=== PATIENT | male | born 1965 | race Caucasian/White ===

== ENCOUNTER 2021-12-29 10:23 | Inpatient (IN) | payer OTHER ==
[~2021-12-29] VITALS: Ht 175.3 cm; Wt 88.2 kg
[~2021-12-29 10:23] MED LIST: Bactrim Ds Tab1 EACH PO; CEPH500 PO; Cleocin HCl300 MG PO; HYDACE5325 PO; Percocet 5-3251 EACH PO
[2021-12-29 10:40] LABS: Base Excess Venous 2.2 mmol/L; Bicarbonate Venous 24.6 mmol/L (24.0-30.0); PCO2 Venous 60.4 mmHg (38-42); pH Blood Venous 7.29 (7.34-7.37)
[2021-12-29 10:47] LABS: BASOPHILS ABSOLUTE AUTO 0.13 K/mm3 (0.00-0.23); BASOPHILS PERCENT AUTO 1 % (0-2); EOSINOPHILS ABSOLUTE AUTO 0.68 K/mm3 (0.00-0.68); EOSINOPHILS PERCENT AUTO 5 % (0-6); Hematocrit 48.9 % (37.0-53.0); Hemoglobin 16.7 g/dL (13.5-17.5); IMMATURE GRAN ABSOLUTE AUTO 0.04 K/mm3 (0.00-0.10); IMMATURE GRAN PERCENT AUTO 0 % (0-1); LYMPHOCYTES ABSOLUTE AUTO 2.76 K/mm3 (0.84-5.20); LYMPHOCYTES PERCENT AUTO 19 % (21-46); MONOCYTES PERCENT AUTO 7 % (4-13); Mean Corpuscular HGB 32.4 pg (26.0-34.0); Mean Corpuscular HGB Conc 34.2 g/dL (31.5-36.5); Mean Corpuscular Volume 95 fL (80-100); Mean Platelet Volume 10.3 fL (9.1-12.4); NEUTROPHILS ABSOLUTE AUTO 9.99 K/mm3 (1.96-9.15); NEUTROPHILS PERCENT AUTO 68 % (41-73); Platelet Count 320 K/mm3 (150-400); RDW Coefficient Variation 12.1 % (11.7-14.2); RDW Standard Deviation 42.5 fL (35.1-46.3); Red Blood Cell Count 5.16 M/mm3 (4.30-5.90)
[2021-12-29 10:57] LABS: Bun/Creatinine Ratio 24.8 (12.0-20.0); Calcium, Blood 8.8 mg/dL (8.5-10.1); Creatinine, Blood 0.73 mg/dL (0.60-1.20); Potassium, Blood 4.9 mmol/L (3.5-5.5)
[2021-12-29 12:01] LABS: Influenza A, PCR NEGATIVE (NEGATIVE); Influenza B, PCR NEGATIVE (NEGATIVE); Resp Syncytial Virus, PCR NEGATIVE (NEGATIVE); SARS-Cov-2 (COVID-19) PCR, MMC NEGATIVE (NEGATIVE)
[2021-12-29 12:22] LABS: Bicarbonate Venous 24.6 mmol/L (24.0-30.0); PCO2 Venous 68.5 mmHg (38-42)
[2021-12-29 12:23] LABS: pH Blood Venous 7.25 (7.34-7.37)
--- NOTE | 2021-12-29 14:02 | NUR ---
ASSUMPTION OF CARE PT ARRIVED TO ICU ROOM 8 FROM ER VIA GURNEY, TRANSFERRED VIA SLIDER SHEET. PT ALERT AND ORIENTED TO PERSON AND , CONFUSED REGARDING LOCATION. PT WAS ADMINSTERED VERSED IN THE ER PRIOR TO ARRIVAL, DROWSY AND CONFUSED DUE TO VERSED. BIPAP ON EVEN THOUGH PT NOT TOLERATING WELL. BIPAP SETTINGS-13/09 @ 40%. CONTINUOUSLY PULLING AT BIPAP AND REQUESTING "JELLO". THIS NURSE EDUCATED PT OF THE NEED FOR BIPAP, PT AGITATED. PRECEDEX GTT INITIATED @ 0.2MCG/KG/HR TO ASSIST WITH COMPLIANCE, TITRATING AT THIS TIME. UNABLE TO OBTAIN DETAILED PT HISTORY AT THIS TIME.
[2021-12-29 14:43] LABS: PCO2 Venous 62.6 mmHg (38-42); pH Blood Venous 7.29 (7.34-7.37)
[2021-12-29 14:44] LABS: Base Excess Venous 3.1 mmol/L; Bicarbonate Venous 25.2 mmol/L (24.0-30.0)
--- NOTE | 2021-12-29 18:10 | NUR ---
SHIFT SUMMARY PT ALERT AND ORIENTED TO PERSON, PLACE, AND YEAR. PT REMAINS ON SUPPLEMENTAL OXYGEN, NOT TOLERATING BIPAP WELL. CURRENTLY GIVING PT A BREAK FROM BIPAP, ON 4LPM O2 VIA NC c SATS >90%. LS DIMINISHED/ WHEEZING T/O. PT c OCCASIONAL COUGH, NON-PRODUCTIVE. PRECEDEX REMAINS ON @ 0.4MCG/KG/HR DUE TO PTS AGITATED STATE/ NON-COMPLIANCE WITH CARE. VSS. WILL MONITOR CLOSELY.
--- NOTE | 2021-12-29 20:00 | NUR ---
ASSUMED CARE OF PT AT 1915. REPORT RECEIVED AT BEDSIDE. PT PRESENTS IN BED. ALERT AND WILL FOLLOW CONVERSATION. IS ON LOW DOSE OF PRECEDEX AT THIS TIME. IS ON OXYGEN AT 5 L/M PER NASAL CANNULA. IS ABLE TO MAINTAIN SATURATIONS > 90 PERCENT. WILL REVIEW CHART AND PLAN OF CARE FOR THIS PT.
--- NOTE | 2021-12-30 01:47 | NUR ---
PT DID REQUIRE HAVING PRECEDEX INCREASED TO 0.7 MCG'S SECONDARY TO PT BECOMING VERY AGITATED AND PULLING OFF ALL HIS MONITORING EQUIPTMENT. PT CURRENTLY COMPLIANT WITH CARE.
--- NOTE | 2021-12-30 01:48 | NUR ---
HAVE TRIALED PT ON 4 L/M WHEREAS HE HAS BEEN ABLE TO MAINTAIN > 90 PERCENT SATURATIONS. ALSO HAVE TRIALED PT WITH SOLID FOOD. HE WAS ABLE TO EAT SOME CHEESE WITHOUT INCREASED DYSPNEA.
[2021-12-30 03:18] LABS: BASOPHILS ABSOLUTE AUTO 0.01 K/mm3 (0.00-0.23); BASOPHILS PERCENT AUTO 0 % (0-2); EOSINOPHILS PERCENT AUTO 0 % (0-6); Hematocrit 44.2 % (37.0-53.0); Hemoglobin 14.6 g/dL (13.5-17.5); IMMATURE GRAN ABSOLUTE AUTO 0.02 K/mm3 (0.00-0.10); IMMATURE GRAN PERCENT AUTO 0 % (0-1); LYMPHOCYTES ABSOLUTE AUTO 1.01 K/mm3 (0.84-5.20); LYMPHOCYTES PERCENT AUTO 12 % (21-46); MONOCYTES ABSOLUTE AUTO 0.21 K/mm3 (0.16-1.47); MONOCYTES PERCENT AUTO 3 % (4-13); Mean Corpuscular HGB 31.7 pg (26.0-34.0); Mean Corpuscular Volume 96 fL (80-100); NEUTROPHILS ABSOLUTE AUTO 7.02 K/mm3 (1.96-9.15); NEUTROPHILS PERCENT AUTO 85 % (41-73); Platelet Count 256 K/mm3 (150-400); RDW Coefficient Variation 12.2 % (11.7-14.2); RDW Standard Deviation 43.4 fL (35.1-46.3); Red Blood Cell Count 4.61 M/mm3 (4.30-5.90); White Blood Cell Count 8.27 K/mm3 (4.00-11.30)
[2021-12-30 03:36] LABS: Albumin, Blood 3.3 g/dL (3.4-5.0); Bilirubin, Total 0.4 mg/dL (0.1-1.0); Bun/Creatinine Ratio 33.3 (12.0-20.0); Calcium, Blood 8.9 mg/dL (8.5-10.1); Creatinine, Blood 0.75 mg/dL (0.60-1.20); Globulin, Blood 3.4 g/dL (2.2-4.0); Magnesium, Blood 2.7 mg/dL (1.6-2.4); Potassium, Blood 4.8 mmol/L (3.5-5.5); Total Protein, Blood 6.7 g/dL (6.4-8.2)
--- NOTE | 2021-12-30 05:48 | NUR ---
PT HAS REMAINED ON NASAL CANNULA THROUGHOUT THE NIGHT. OCCASSIONALLY WILL HAVE SHORT PERIOD OF DESATURATION WHILE IN A SLEEP-APNEIC TYPE BREATHING PATTERN. RECOVERS >90. OF NOTE: PT HAS NOT VOIDED THIS SHIFT. WILL HAVE PT ATTEMPT VOID OR BLADDER SCAN IF NEEDED TO CHECK FOR RETENTION. WILL CONTINUE TO MONITOR PT, AND WILL REPORT OFF TO ONCOMING RN.
--- NOTE | 2021-12-30 08:53 | NUR ---
SHIFT ASSESSMENT ASSUMED CARE OF PT @ 0700, BEDSIDE REPORT RECEIVED FROM PETTY LUTHER. PT INITIALLY DROWSY, ON LOW DOSE PRECEDEX. PRECEDEX TITRATED OFF. PT NOW FULLY ALERT AND ORIENTED, ASKING FOR FOOD. PT GIVEN CLEAR LIQUID FOOD TRAY, ABLE TO SELF FEED. SUPPLEMENTAL O2 VIA NC @ 4LPM, O2 TITRATED OFF OVER THE HOUR. PT NOW ON RA c O2 SATS >90% WITH NO SIGNS OF RESP DISTRESS. NSR ON THE SOLAR PANEL TECHNICIAN, BP WNL. PT HAS NOT URINATED YET BUT STATED HE IS BEGINNING TO HAVE THE URGE. NO OTHER COMPLAINTS OR CONCERNS FROM PT.
--- NOTE | 2021-12-30 12:32 | NUR ---
UPDATE PT TOLERATING ROOM AIR WELL. STILL C/O MILD SORENESS IN LUNGS FROM COUGHING BUT PT REQUESTING TO GO HOME. PT TAKEN FOR A WALK AROUND THE UNIT ON ROOM AIR, TOLERATING WELL, SATS REMAIN GREATER THAN 90%. BP STABLE. PT NOT RECEIVING ANY FLUIDS VIA IV. TOLERATING PO FOOD AND DRINK WELL. PTS PARENTS AT BEDSIDE, CONFIRMED PT HAS INHALERS WITH HIM IF NEEDED. PT TO BE DISCHARGED HOME.
[2021-12-30] MEDS ORDERED: PRED20 PO ×6 (13:24→13:26)
[2021-12-30] MEDS ORDERED: Prednisone10 MG PO ×2 (13:26)
[2021-12-30] MEDS ORDERED: PRED5 PO ×2 (13:26)
[2021-12-30] MEDS ORDERED: SYMBICORT 160-4.6 GM INH (13:33)
--- NOTE | 2021-12-30 14:10 | NUR ---
SUMMARY PT DC'D TO HOME. DISCHARGE INSTRUCTIONS GIVEN TO PTS MOTHER AND FATHER. THIS NURSE REVIEWED INSTRUCTIONS WITH PT AND FAMILY. PT AMBULATED TO WHEELCHAIR AND TAKEN TO PARENTS CAR WITH SENIOR EXECUTIVE ASSISTANT. PT ABLE TO LOAD SELF INTO CAR WITHOUT ISSUE. PRESCRIPTIONS FAXED TO [facility] @ 9819.
[2021-12-31] MEDS ORDERED: Prednisone10 MG PO ×2 (15:31)
== END 2021-12-30 14:00 | disposition home or self-care (01) | DRG 189 ==
LOC: ER 10:23 → ICUE 12:10 → ICUW 12:10 → ICUE 12:44
PROVIDERS: Student in an Organized Health Care Education/Training Program; ADMIT Student in an Organized Health Care Education/Training Program
PROC: 5A09357 Assistance with Respiratory Ventilation, Less than 24 Consecutive Hours, Continuous Positive Airway Pressure (ICD-10-PCS; principal; 2021-12-29)
DX: J96.01 Acute respiratory failure with hypoxia (principal); J45.901 Unspecified asthma with (acute) exacerbation; J96.02 Acute respiratory failure with hypercapnia; Z20.822 Contact with and (suspected) exposure to COVID-19; Z79.899 Other long term (current) drug therapy
CPT/HCPCS: 0241U; 36415; 71045; 80048; 80053; 82803; 83735; 85025; 93005; 93010; 94640; 94644; 94645; 94660; 94664; 94762; A9270; J0171; J1644; J2250; J2920; J7030; J7050; J7060

== ENCOUNTER 2021-12-30 14:08 | Observation (INO) | payer OTHER ==
[~2021-12-30] VITALS: Ht 175.3 cm; Wt 88.9 kg
[~2021-12-30 14:08] MED LIST changes: +PRED20 PO; +PRED5 PO; +Prednisone10 MG PO; +SYMBICORT 160-4.6 GM INH
--- NOTE | 2021-12-30 18:18 | NUR ---
PT ADMITTED TO ROOM 301 @1720 FROM ED- A/O X4. ORIENTED TO ROOM SET UP~ GIVEN WATER AND JELLO. ORDERED LATE DINNER TRAY. PT'S LUNGS DIM T/O, EXP WHEEZE T/O, COUGHS WITH DEEP BREATH AND CANT STOP. ADMIT HX COMPLETED.
[2021-12-31 04:24] LABS: BASOPHILS ABSOLUTE AUTO 0.01 K/mm3 (0.00-0.23); BASOPHILS PERCENT AUTO 0 % (0-2); EOSINOPHILS PERCENT AUTO 0 % (0-6); Hematocrit 44.2 % (37.0-53.0); Hemoglobin 14.5 g/dL (13.5-17.5); IMMATURE GRAN ABSOLUTE AUTO 0.08 K/mm3 (0.00-0.10); IMMATURE GRAN PERCENT AUTO 1 % (0-1); LYMPHOCYTES ABSOLUTE AUTO 0.76 K/mm3 (0.84-5.20); LYMPHOCYTES PERCENT AUTO 5 % (21-46); MONOCYTES ABSOLUTE AUTO 0.42 K/mm3 (0.16-1.47); MONOCYTES PERCENT AUTO 3 % (4-13); Mean Corpuscular HGB 31.8 pg (26.0-34.0); Mean Corpuscular HGB Conc 32.8 g/dL (31.5-36.5); Mean Corpuscular Volume 97 fL (80-100); Mean Platelet Volume 10.7 fL (9.1-12.4); NEUTROPHILS ABSOLUTE AUTO 14.73 K/mm3 (1.96-9.15); NEUTROPHILS PERCENT AUTO 92 % (41-73); Platelet Count 283 K/mm3 (150-400); RDW Coefficient Variation 12.3 % (11.7-14.2); RDW Standard Deviation 43.8 fL (35.1-46.3); Red Blood Cell Count 4.56 M/mm3 (4.30-5.90)
[2021-12-31 04:42] LABS: Bun/Creatinine Ratio 39.6 (12.0-20.0); Calcium, Blood 8.9 mg/dL (8.5-10.1); Creatinine, Blood 0.71 mg/dL (0.60-1.20); Magnesium, Blood 2.7 mg/dL (1.6-2.4); Potassium, Blood 4.4 mmol/L (3.5-5.5)
--- NOTE | 2021-12-31 05:50 | NUR ---
SHIFT SUMMARY; PT COOPERATIVE OF CARE BUT IRRITABLE. PT BECAME IRRITABLE WITH CARE VISITS, ASKED THAT WE LEAVE HIM ALONE. PT AXO X4, INDEPENDENT IN ROOM. PT WAS DC'D FROM ICU 12/30 AND HAD CAME BACK MINUTES LATER FOR SOB. PT WITH WHEEZING THROUGHOUT, PT REQUESTED BREATHING TREATMENT LAST NIGHT. PT REMAINED ON RA THROUGHOUT THE NIGHT. TELE IN PLACE-SINUS TACH 100'S. NO ACUTE MEDICAL CHANGES THROUGHOUT THE NIGHT, BED IN THE LOWEST POSITION AND CALL LIGHT WITHIN REACH.
[2021-12-31] MEDS ORDERED: Prednisone10 MG PO ×2 (15:31)
== END 2021-12-31 15:31 | disposition home or self-care (01) ==
LOC: ER 14:08 → MEDS 14:09
PROVIDERS: ADMIT Student in an Organized Health Care Education/Training Program
DX: J45.901 Unspecified asthma with (acute) exacerbation (principal); J96.91 Respiratory failure, unspecified with hypoxia; J96.92 Respiratory failure, unspecified with hypercapnia
CPT/HCPCS: 36415; 80048; 83735; 85025; 94640; 94664; 94760; 96374; 96376; G0378; J2930; J7626